=== PATIENT | male | born 1965 | race Caucasian/White ===

== ENCOUNTER → 2019-08-03 | Outpatient (CLI) | payer BC ==
[~2019-08-03] MED LIST: AMBI5TAB PO
[2019-08-03 13:07] LABS: BASO # 0.1 10^3/uL (0.0-0.2); BASO % 0.9 % (0.0-1.0); EOS # 0.1 10^3/uL (0.0-0.5); HEMATOCRIT 42.9 % (42.0-52.0); HEMOGLOBIN 14.5 g/dl (13.5-17.5); LYMPH # 1.7 10^3/uL (1.5-5.0); LYMPH % 31.7 % (24.0-44.0); MEAN CORPUSCULAR HEMOGLOBIN 30.5 pg (27.0-33.0); MEAN CORPUSCULAR HGB CONC 33.8 g/dl (32.0-36.5); MEAN CORPUSCULAR VOLUME 90.3 fl (80.0-96.0); MONO # 0.6 10^3/uL (0.0-0.8); MONO % 10.7 % (0.0-5.0); NEUTROPHILS # 2.9 10^3/uL (1.5-8.5); NEUTROPHILS % 54.3 % (36.0-66.0); PLATELET COUNT, AUTOMATED 206 10^3/uL (150-450); RED BLOOD COUNT 4.75 10^6/uL (4.30-6.10); WHITE BLOOD COUNT 5.4 10^3/uL (4.0-10.0)
[2019-08-03 13:27] LABS: ALBUMIN 3.8 GM/DL (3.2-5.2); ALT/SGPT 31 U/L (12-78); BILIRUBIN,TOTAL 0.8 MG/DL (0.2-1.0); BLOOD UREA NITROGEN 13 MG/DL (7-18); CALCIUM LEVEL 8.7 MG/DL (8.5-10.1); CARBON DIOXIDE LEVEL 33 MEQ/L (21-32); CHLORIDE LEVEL 101 MEQ/L (98-107); CHOLESTEROL LEVEL 184 MG/DL (<200); GLOMERULAR FILTRATION RATE > 60.0 (>56); GLUCOSE, FASTING 92 MG/DL (70-100); HDL CHOLESTEROL 73 MG/DL (>40); LDL CHOLESTEROL 98 MG/DL (<100); NON-HDL-C 111 MG/DL; POTASSIUM SERUM 4.8 MEQ/L (3.5-5.1); PROSTATIC SPECIFIC AG MONITOR 0.88 NG/ML (< 4.00); SODIUM LEVEL 135 MEQ/L (136-145); TOTAL PROTEIN 6.6 GM/DL (6.4-8.2); TRIGLYCERIDES LEVEL 66 MG/DL (<150)
[2019-08-03 14:29] LABS: CHLAMYDIA DNA AMPLIFICATION NEGATIVE (NEGATIVE); GC DNA AMPLIFICATION NEGATIVE (NEGATIVE)
[2019-08-04 11:00] LABS: HEPATITIS B SURFACE ANTIGEN NEGATIVE (NEGATIVE)
[2019-08-04 11:27] LABS: HEPATITIS B CORE ANTIBODY IGM NEGATIVE (NEGATIVE); HEPATITIS C VIRUS ABY INDEX 0.1 INDEX (<0.8)
[2019-08-04 11:29] LABS: HIV 1&2 SCREEN CENTAUR NEGATIVE (NEGATIVE)
[2019-08-04 11:30] LABS: HEPATITIS A ANTIBODY IGM NEGATIVE (NEGATIVE)
[2019-08-05 08:22] LABS: HSV TYPE II IgG SPECIFIC <0.91 index (0.00-0.90)
== END ==
LOC: M WUC 08:59
PROVIDERS: ATTEND Family Medicine
DX: Z00.00 Encounter for general adult medical examination without abnormal findings (principal); F66 Other sexual disorders

== ENCOUNTER → 2019-08-21 | Outpatient (CLI) | payer BC ==
[2019-08-21 11:44] LABS: FREE T4 1.05 NG/DL (0.76-1.46); THYROID STIMULATING HORMONE 1.7 uIU/ML (0.358-3.740)
[2019-08-21 11:46] LABS: ESTRADIOL 26.3 PG/ML (<39.8); LUTEINIZING HORMONE 4.8 mIU/mL (1.5-9.3); TOTAL T3 78.8 NG/DL (60.0-181.0)
[2019-08-23 00:08] LABS: HCG SERUM TUMOR MARKER QUANT < 1 mIU/mL (0-3); TESTOSTERONE FREE (DIRECT) 10.9 pg/mL (7.2-24.0)
== END ==
LOC: M WUC 08:28
PROVIDERS: ATTEND Family Medicine
DX: N62 Hypertrophy of breast (principal)

== ENCOUNTER → 2021-03-23 | Outpatient (CLI) | payer BC ==
[2021-03-23 12:09] LABS: HEMATOCRIT 41.5 % (42.0-52.0); HEMOGLOBIN 13.9 g/dl (13.5-17.5); MEAN CORPUSCULAR HEMOGLOBIN 30.3 pg (27.0-33.0); MEAN CORPUSCULAR HGB CONC 33.5 g/dl (32.0-36.5); MEAN CORPUSCULAR VOLUME 90.6 fl (80.0-96.0); PLATELET COUNT, AUTOMATED 192 10^3/uL (150-450); RED BLOOD COUNT 4.58 10^6/uL (4.30-6.10)
[2021-03-23 13:52] LABS: ALBUMIN 3.9 GM/DL (3.2-5.2); ALT/SGPT 35 U/L (12-78); BILIRUBIN,TOTAL 0.8 MG/DL (0.2-1.0); BLOOD UREA NITROGEN 15 MG/DL (7-18); CALCIUM LEVEL 8.9 MG/DL (8.5-10.1); CARBON DIOXIDE LEVEL 30 MEQ/L (21-32); CHLORIDE LEVEL 105 MEQ/L (98-107); CHOLESTEROL LEVEL 213 MG/DL (<200); CHOLESTEROL RISK RATIO 3.328 (<5); CREATININE FOR GFR 0.91 MG/DL (0.70-1.30); GLOMERULAR FILTRATION RATE > 60.0 (>56); GLUCOSE, FASTING 86 MG/DL (70-100); HDL CHOLESTEROL 64 MG/DL (>40); LDL CHOLESTEROL 129 MG/DL (<100); NON-HDL-C 149 MG/DL; POTASSIUM SERUM 4.4 MEQ/L (3.5-5.1); SODIUM LEVEL 141 MEQ/L (136-145); TOTAL PROTEIN 6.8 GM/DL (6.4-8.2); TRIGLYCERIDES LEVEL 102 MG/DL (<150)
== END ==
LOC: M WUC 10:50
PROVIDERS: ATTEND Family Medicine
DX: Z00.00 Encounter for general adult medical examination without abnormal findings (principal)

== ENCOUNTER → 2022-04-12 | Outpatient (CLI) | payer BC ==
[2022-04-12 12:42] LABS: HEMATOCRIT 41.6 % (42.0-52.0); HEMOGLOBIN 13.8 g/dl (13.5-17.5); MEAN CORPUSCULAR HGB CONC 33.2 g/dl (32.0-36.5); MEAN CORPUSCULAR VOLUME 90.4 fl (80.0-96.0); PLATELET COUNT, AUTOMATED 188 10^3/uL (150-450); WHITE BLOOD COUNT 4.4 10^3/uL (4.0-10.0)
[2022-04-12 12:51] LABS: ALT/SGPT 34 U/L (12-78); BILIRUBIN,TOTAL 0.7 MG/DL (0.2-1.0); BLOOD UREA NITROGEN 15 MG/DL (7-18); CARBON DIOXIDE LEVEL 27 MEQ/L (21-32); CHLORIDE LEVEL 107 MEQ/L (98-107); CHOLESTEROL LEVEL 205 MG/DL (<200); CHOLESTEROL RISK RATIO 3.059 (<5); CREATININE FOR GFR 1.01 MG/DL (0.70-1.30); GLOMERULAR FILTRATION RATE > 60.0 (>56); GLUCOSE, FASTING 108 MG/DL (70-100); HDL CHOLESTEROL 67 MG/DL (>40); LDL CHOLESTEROL 123 MG/DL (<100); NON-HDL-C 138 MG/DL; POTASSIUM SERUM 4.2 MEQ/L (3.5-5.1); SODIUM LEVEL 140 MEQ/L (136-145); TOTAL PROTEIN 6.7 GM/DL (6.4-8.2); TRIGLYCERIDES LEVEL 74 MG/DL (<150)
[2022-04-13 17:25] LABS: HEP C VIRUS AB INDEX SOURCE PT 0.1 INDEX (0.0-0.8); HEPATITIS B SURFACE ANTIGEN NEGATIVE (NEGATIVE); HIV SCREEN CENTAUR SOURCE NEGATIVE (NEGATIVE)
== END ==
LOC: M WUC 08:29
PROVIDERS: ATTEND Family Medicine
DX: Z00.00 Encounter for general adult medical examination without abnormal findings (principal)

== ENCOUNTER → 2023-06-27 | Outpatient (CLI) | payer BC ==
[2023-06-27 10:50] LABS: HEPATITIS C VIRUS ABY INDEX 0.13 INDEX (<0.8)
[2023-06-27 10:51] LABS: HEPATITIS B CORE ANTIBODY IGM NEGATIVE (NEGATIVE)
== END ==
LOC: M WUC 08:31
PROVIDERS: ATTEND Podiatrist Foot & Ankle Surgery
DX: B35.1 Tinea unguium (principal)

== ENCOUNTER → 2023-06-27 | Outpatient (CLI) | payer BC ==
[2023-06-27 09:58] LABS: HEMATOCRIT 40.8 % (42.0-52.0); HEMOGLOBIN 13.7 g/dl (13.5-17.5); MEAN CORPUSCULAR HEMOGLOBIN 30.1 pg (27.0-33.0); MEAN CORPUSCULAR HGB CONC 33.6 g/dl (32.0-36.5); MEAN CORPUSCULAR VOLUME 89.7 fl (80.0-96.0); PLATELET COUNT, AUTOMATED 206 10^3/uL (150-450); RED BLOOD COUNT 4.55 10^6/uL (4.30-6.10)
[2023-06-27 10:10] LABS: PROSTATIC SPECIFIC AG MONITOR 0.65 NG/ML (< 4.00)
[2023-06-27 10:16] LABS: ALBUMIN 3.8 G/DL (3.2-5.2); ALKALINE PHOSPHATASE 85 U/L (46-116); ALT/SGPT 29 U/L (7.0-40); AST/SGOT < 8 U/L (<34); BLOOD UREA NITROGEN 18 MG/DL (9-23); CARBON DIOXIDE LEVEL 30 MMOL/L (20-31); CHLORIDE LEVEL 103 MMOL/L (98-107); CHOLESTEROL LEVEL 218 MG/DL (<200); CHOLESTEROL RISK RATIO 3.38 (<5); CREATININE FOR GFR 0.98 MG/DL (0.70-1.30); GLOMERULAR FILTRATION RATE > 60.0 (>56); GLUCOSE, FASTING 93 MG/DL (60-100); HDL CHOLESTEROL 64.4 MG/DL (>40); LDL CHOLESTEROL 137.6 MG/DL (<100); NON-HDL-C 153.6 MG/DL; POTASSIUM SERUM 4.6 MMOL/L (3.5-5.1); SODIUM LEVEL 139 MMOL/L (136-145); THYROID STIMULATING HORMONE 2.252 uIU/ML (0.55-4.78); TOTAL PROTEIN 6.5 G/DL (5.7-8.2); TRIGLYCERIDES LEVEL 80 MG/DL (<150)
== END ==
LOC: M WUC 08:35
PROVIDERS: ATTEND Family Medicine
DX: Z00.00 Encounter for general adult medical examination without abnormal findings (principal)

== ENCOUNTER → 2024-07-25 | Outpatient (CLI) | payer BC ==
[2024-07-25 11:18] LABS: HEMATOCRIT 40.2 % (42.0-52.0); HEMOGLOBIN 13.6 g/dl (13.5-17.5); MEAN CORPUSCULAR HEMOGLOBIN 30.5 pg (27.0-33.0); MEAN CORPUSCULAR HGB CONC 33.8 g/dl (32.0-36.5); MEAN CORPUSCULAR VOLUME 90.1 fl (80.0-96.0); PLATELET COUNT, AUTOMATED 204 10^3/uL (150-450); RED BLOOD COUNT 4.46 10^6/uL (4.30-6.10); WHITE BLOOD COUNT 6.2 10^3/uL (4.0-10.0)
[2024-07-25 11:50] LABS: ALBUMIN 3.7 G/DL (3.2-5.2); ALKALINE PHOSPHATASE 87 U/L (46-116); ALT/SGPT 30 U/L (7.0-40); AST/SGOT 11 U/L (<34); BILIRUBIN,TOTAL 0.8 MG/DL (0.3-1.2); BLOOD UREA NITROGEN 13 MG/DL (9-23); CALCIUM LEVEL 9.1 MG/DL (8.5-10.1); CARBON DIOXIDE LEVEL 30 MMOL/L (20-31); CHLORIDE LEVEL 105 MMOL/L (98-107); CHOLESTEROL LEVEL 207 MG/DL (<200); CHOLESTEROL RISK RATIO 3.19 (<5); CREATININE FOR GFR 0.97 MG/DL (0.70-1.30); GLOMERULAR FILTRATION RATE > 60.0 (>56); GLUCOSE, FASTING 93 MG/DL (60-100); HDL CHOLESTEROL 64.8 MG/DL (>40); LDL CHOLESTEROL 125.6 MG/DL (<100); NON-HDL-C 142.2 MG/DL; POTASSIUM SERUM 4.3 MMOL/L (3.5-5.1); PROSTATIC SPECIFIC AG MONITOR 0.58 NG/ML (< 4.00); SODIUM LEVEL 138 MMOL/L (136-145); TOTAL PROTEIN 6.5 G/DL (5.7-8.2); TRIGLYCERIDES LEVEL 83 MG/DL (<150)
[2024-07-25 11:51] LABS: THYROID STIMULATING HORMONE 2.557 uIU/ML (0.55-4.78)
== END ==
LOC: M WUC 08:34
PROVIDERS: ATTEND Family Medicine
DX: Z00.00 Encounter for general adult medical examination without abnormal findings (principal)

== ENCOUNTER → 2025-08-04 | Outpatient (CLI) | payer BC ==
[~2025-08-04] MED LIST changes: -AMBI5TAB PO; +ZOLP-532 PO
[2025-08-04 12:35] LABS: APPEARANCE, URINE CLEAR (CLEAR); BACTERIA, URINE AUTO NEGATIVE (NEGATIVE); BILIRUBIN, URINE AUTO NEGATIVE (NEGATIVE); BLOOD, URINE BLOOD NEGATIVE (NEGATIVE); GLUCOSE, URINE (UA) AUTO NEGATIVE (NEGATIVE); KETONE, URINE AUTO NEGATIVE (NEGATIVE); LEUKOCYTE ESTERASE, URINE AUTO NEGATIVE (NEGATIVE); MUCUS, URINE SMALL (NEGATIVE); NITRITE, URINE AUTO NEGATIVE (NEGATIVE); PROTEIN, URINE AUTO NEGATIVE (NEGATIVE); RBC, URINE AUTO 0 /HPF (0-3); SPECIFIC GRAVITY URINE AUTO 1.020 (1.002-1.035); SQUAMOUS EPITHELIAL CELL UR AU 0 /HPF (0-6); UROBILINOGEN, URINE AUTO 0.2 mg/dL (0.0-2.0); WBC, URINE AUTO 0 /HPF (0-3)
[2025-08-04 12:38] LABS: PLATELET COUNT, AUTOMATED 175 10^3/uL (150-450)
[2025-08-04 12:39] LABS: INR 0.92
[2025-08-04 13:08] LABS: CALCIUM LEVEL 8.7 MG/DL (8.3-10.6); CARBON DIOXIDE LEVEL 27 MMOL/L (20-31); CHLORIDE LEVEL 104 MMOL/L (98-107); CREATININE FOR GFR 0.93 MG/DL (0.70-1.30); GLOMERULAR FILTRATION RATE > 90.0 (>49); POTASSIUM SERUM 4.4 MMOL/L (3.5-5.1); SODIUM LEVEL 141 MMOL/L (136-145)
== END ==
LOC: M WUC 09:06
PROVIDERS: ATTEND Family Medicine
DX: Z01.818 Encounter for other preprocedural examination (principal)